=== PATIENT | female | born 1965 | race Caucasian/White ===

== ENCOUNTER 2018-06-18 08:12 | Day surgery (SDC) | payer BC ==
[2018-06-18] MEDS ORDERED: LIDOCAINE 2% MDV (20MG/ML) 20ML VIAL IV ONE (08:13)
[2018-06-18] MEDS ORDERED: KETOROLAC 30 MG/ML VIAL IVP ONE (08:13)
[2018-06-18] MEDS ORDERED: PROPOFOL 10 MG/ML VIAL IV ONE (08:13)
[2018-06-18] MEDS ORDERED: FENTANYL PF 100MCG/2ML VIAL IV ONE (08:13)
--- NOTE | 2018-06-21 08:30 | Operative Note ---
DATE OF SURGERY: 06/18/2018 SURGEON: Juanita Ann MD OPERATION: COLONOSCOPY. INDICATIONS: This is a 63-year-old female with history of colon polyps who presented for surveillance colonoscopy. POSTOPERATIVE DIAGNOSES: 1. Left-sided colonic diverticulosis. 2. Grade 1 internal hemorrhoids. ANESTHESIA: Sedation is per Anesthesia. Pulse oximetry was monitored throughout the procedure to maintain O2 saturation of 90% or greater. Supplemental oxygen was administered via nasal cannula. Cardiac and vital signs were monitored throughout the duration of the procedure, and they were stable. The procedure of colonoscopy and risks and alternatives of the procedure, including the risk of bleeding and perforation, among others, were explained to the patient who voiced understanding and agreed to have the procedure done. Physical examination was performed, and the patient was found stable for sedation. PROCEDURE: The patient was placed in the left lateral position. Sedation was initiated. A digital rectal exam was performed and showed some mild external hemorrhoids with no palpable rectal masses. An Olympus PCF-180AL colonoscope was then inserted into the rectum under direct visualization. It was advanced to the cecum without difficulty. The ileocecal valve and appendiceal orifice were identified and photographed. The colonic mucosa was carefully examined upon introduction of the colonoscope. There were scattered diverticula noted in the sigmoid and descending colon. There were no other lesions noted. The ileocecal valve was intubated and terminal ileal mucosa was inspected for about 10 cm and it appeared normal. The colonoscope was then withdrawn while carefully examining the colonic mucosal surfaces. No other lesions were noted. In the rectum, retroflexion was performed and grade 1 internal hemorrhoids were noted. The colonoscope was then withdrawn and the procedure was terminated. The patient tolerated the procedure well without any immediate complications. The patient remained with stable vital signs and was transferred to the recovery room. RECOMMENDATIONS: 1. The patient should be on a high-fiber diet. 2. The patient is to have a repeat colonoscopy for surveillance in 5 years. Thank you for allowing me to participate in the care of your patient. CC: DO HETAL Morin
== END 2018-06-18 10:05 | disposition home or self-care (01) ==
LOC: HOP 08:12
PROVIDERS: ATTEND Internal Medicine Gastroenterology
DX: Z12.11 Encounter for screening for malignant neoplasm of colon (principal); Z86.010 Personal history of colon polyps; K57.30 Diverticulosis of large intestine without perforation or abscess without bleeding; E03.9 Hypothyroidism, unspecified
CPT/HCPCS: 00812; G0105; J1885

== ENCOUNTER 2019-03-09 18:31 | Emergency (ER) | payer BC ==
[2019-03-09] MEDS ORDERED: KETOROLAC 30 MG/ML VIAL IVP ONE (18:39)
[2019-03-09] MEDS ORDERED: ASPIRIN 81 MG CHEWABLE TABLET PO ONE (18:40)
--- NOTE | 2019-03-09 18:44 | Emergency Department Record ---
History of Present Illness - General Chief Complaint: Chest Pain Stated Complaint: CHEST PAIN Time Seen by Provider: 03/09/19 18:32 Source: Patient Mode of Arrival: Ambulatory Limitations: No limitations - History of Present Illness Initial Comments: 54 yo female presents to ED for evaluation of chest pain symptoms for the past 3 days, reports "pain all over". Patient reports any movement of the chest causes pain, worse when supine. 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 Patient denies fevers, chills, or cough symptoms, denies recent illness. Patient denies previous heart or lung problems, and denies history of DVT or calf pain/swelling symptoms. MD Complaint: Chest pain Onset/Timin -: Days(s) Pain Location: Substernal Severity: Moderate Quality: Aching Consistency: Constant Improves With: Other (sitting upright) Worsens With: Supine Treatments Prior to Arrival: None - Related Data Allergies Allergy/AdvReac Type Severity Reaction Status Date / Time No Known Drug Allergies Allergy Unverified 06/28/18 14:07 Review of Systems Constitutional: Denies: Chills, Fever, Malaise, Night sweats Eyes: Denies: Eye discharge, Eye pain ENT: Denies: Congestion, Ear pain, Epistaxis Respiratory: Denies: Cough, Dyspnea Cardiovascular: Reports: Chest pain. Denies: Dyspnea on exertion Endocrine: Denies: Fatigue, Heat or cold intolerance Gastrointestinal: Denies: Abdominal pain, Nausea, Vomiting Genitourinary: Denies: Incontinence, Retention Musculoskeletal: Denies: Arthralgia, Back pain Skin: Denies: Bruising, Change in color Neurological: Denies: Abnormal gait, Confusion, Headache, Tingling, Tremors Psychiatric: Denies: Anxiety Hematological/Lymphatic: Denies: Anemia, Blood Clots Past Medical History - SOCIAL HISTORY Smoking Status: Light tobacco smoker (<10/day) - RESPIRATORY Hx Respiratory Disorders: No - CARDIOVASCULAR Hx Cardio Disorders: No - NEURO Hx Neuro Disorders: Yes Hx of Migraines: Yes (lisinopril for migraines) - GI Hx GI Disorders: Yes Hx of Polyps: Yes - Hx Genitourinary Disorders: No - ENDOCRINE Hx Endocrine Disorders: No - MUSCULOSKELETAL Hx Musculoskeletal Disorders: No - PSYCH Hx Psych Problems: Yes Hx Depression: Yes - HEMATOLOGY/ONCOLOGY Hx Hematology/Oncology Disorders: No Family Medical History Hx HTN: Father Hx Kidney Disease: Mother Physical Exam - General General Appearance: Alert, Oriented x3, Cooperative, Moderate distress, Anxious Limitations: No limitations - Head Head exam: Atraumatic, Normocephalic, Normal inspection Head exam detail: negative: Abrasion, Contusion, Helm's sign, General tenderness, Hematoma, Laceration - Eye Eye exam: Normal appearance. negative: Conjunctival injection, Periorbital swelling, Periorbital tenderness, Scleral icterus - ENT Ear exam: negative: Auricular hematoma, Auricular trauma Nasal Exam: negative: Active bleeding, Discharge, Dried blood, Foreign body Mouth exam: negative: Drooling, Laceration, Muffled voice, Tongue elevation - Neck Neck exam: Normal inspection. negative: Meningismus, Tenderness - Respiratory Respiratory exam: Normal lung sounds bilaterally. negative: Respiratory distress, Rhonchi, Stridor, Wheezes - Cardiovascular Cardiovascular Exam: Normal rhythm, Normal heart sounds, Tachycardia - GI/Abdominal GI/Abdominal exam: Soft. negative: Distended, Rebound, Rigid, Tenderness - Rectal Rectal exam: Deferred - exam: Deferred - Extremities Extremities exam: Normal inspection. negative: Pedal edema, Tenderness - Back Back exam: Denies: CVA tenderness (R), CVA tenderness (L) - Neurological Neurological exam: Alert, Normal gait, Oriented X3 - Psychiatric Psychiatric exam: Normal affect, Normal mood - Skin Skin exam: Normal color. negative: Abrasion Type of lesion: negative: abrasion Course - Reevaluation(s) Reevaluation #1: 03/09/19 18:45 EKG: Sinus tachycardia IVCD, normal intervals ST depression I, II, V3-V5 Patient's EKG is concerning for myocardial ischemia, will administer ASA/Nitro trial and monitor closely pending Troponin results. Reevaluation #2: 03/09/19 19:31 Laboratory studies were reviewed and appear grossly unremarkable for an acute process. Troponin is normal at this time. Patient declined Nitro that was ordered for concerning EKG. Patient did accept ASA and Toradol. Patient is going for CTA of the chest at this time. Reevaluation #3: 03/09/19 20:41 CTA Chest: Non-displaced rib fractures of the left 2nd, 4th-7th No PE Patient was updated on all results, will initiate transfer to [facility] for Trauma and Cardiac evaluation. Medical Decision Making - Lab Data Result diagrams: 03/09/19 18:40 03/09/19 18:40 Disposition Disposition: Transfer Clinical Impression: Acute electrocardiogram changes Chest pain Qualifiers: Chest pain type: unspecified Qualified Code(s): R07.9 - Chest pain, unspecified Multiple rib fractures Qualifiers: Encounter type: subsequent encounter Fracture type: closed Laterality: left Fracture healing: with routine healing Qualified Code(s): S22.42XD - Multiple fractures of ribs, left side, subsequent encounter for fracture with routine healing Disposition: Acute Care Hospital Transfer Transfer To: [facility] Reason For Transfer: Cardiology consultation Accepting Physician: Oniel Bonds Time Discussed w/Accepting Physician: 21:11 Condition: (2) Stable Forms: Patient Portal Access Time of Disposition: 20:43 Quality - Quality Measures Quality Measures: N/A - Blood Pressure Screening Does Patient Have Any of the Following: No Blood Pressure Classification: Pre-Hypertensive BP Reading Systolic Measurement: 129 Diastolic Measurement: 86 Screening for High Blood Pressure: < Pre-Hypertensive BP, F/U Documented > [[id number]] Pre-Hypertensive Follow-up Interventions: Referral to alternative/primary care provider.
[2019-03-09] MEDS ORDERED: NITROGLYCERIN 0.4MG SL TABLET #25 BTL SL PRN (18:46)
[2019-03-09 19:04] LABS: ABSOLUTE NEUTROPHIL COUNT 2.71; BASO % 0.5 % (0-6); EOS % 6.7 % (0-6); GRAN % 48.2 % (47-80); HEMATOCRIT 43.8 % (35.0-47.0); HEMOGLOBIN 14.5 gm/dl (11.6-16.0); LYMPH % 36.1 % (16-45); MEAN CELL VOLUME 94.8 fl (81-97); MEAN CORPUSCULAR HEMOGLOBIN 31.4 pg (27-33); MEAN CORPUSCULAR HGB CONC 33.1 g/dl (32-36); MEAN PLATELET VOLUME 9.3 fl (7.4-10.4); MONO % 8.5 % (0-9); PLATELET COUNT 325 K/uL (130-400); RED BLOOD COUNT 4.62 M/uL (3.80-5.40); RED CELL DISTRIBUTION WIDTH 13.2 % (11.5-14.5); WHITE BLOOD COUNT W/O DIFF 5.6 K/uL (4.2-12.2)
[2019-03-09 19:19] LABS: BLOOD UREA NITROGEN 16 mg/dL (6-20); CREATININE 0.6 mg/dL (0.5-0.9); EST GLOMERULAR FILTRATION RATE > 60 mL/min; TOTAL PROTEIN 8.1 g/dL (6.6-8.7)
[2019-03-09 19:21] LABS: GLUCOSE,RANDOM 131 mg/dL (74-109)
[2019-03-09 19:24] LABS: ALB/GLOB RATIO 1.9 (1.1-1.8); ALBUMIN 5.3 g/dL (4.0-5.0); ALKALINE PHOSPHATASE 84 U/L (35-104); ALT/SGPT 21 U/L (<33); AST/SGOT 20 U/L (10.0-35.0)
[2019-03-09] MEDS ORDERED: MORPHINE SULFATE 5 MG/ML VIAL IVP ONE (21:14)
--- NOTE | 2019-03-09 22:21 | CT ANGIOGRAM REPORT ---
EXAMINATION: CT Angiography of the Thorax EXAM DATE: 03/09/2019 8:03 PM TECHNIQUE: Standard protocol CT angiogram images were obtained through the chest following the admini stration of intravenous contrast. Coronal and sagittal MIP 3-D reformations were performed. IV Contrast: The amount and type of contrast are recorded in the medical record. INDICATION: chest pain, anterior left rib pain. Fell a few days ago COMPARISON: None ENCOUNTER: Not applicable FINDINGS: Pulmonary Artery: No pulmonary embolism is present. Aorta: No thoracic aortic aneurysm or dissection is present. Right Heart Strain: None. Heart : The heart is nonenlarged and there is no pericardial effusion. No enlarged lymph nodes in th e thorax. Tammy and Mediastinum: No lymphadenopathy. Lung Parenchyma: Normal. Central Airways: Normal. Pleural Effusion: None. Upper Abdomen: Unilocular cyst in the lateral segment of the left lobe of liver measures 1 cm. Unilo cular cyst upper pole left kidney measures 1.1 cm. Musculoskeletal and Chest Wall: Acute nondisplaced fracture of the anterior left second rib on axial image 2, 48 as well as the anterior left third rib on axial image 2, 71. Acute nondisplaced fracture of the lateral left fourth rib on axial image 2, 76, lateral left fifth rib on image 87, lateral left sixth rib on image 96, lateral left seventh rib on image 125 Vertebral body stature is preserved. IMPRESSION: 1. Acute nondisplaced fractures of the anterior left second and third ribs. Acute nondisplaced fractu res of the lateral left fourth through seventh ribs. 2. No PE or thoracic aortic dissection. The lungs are clear. Dictated by: Francisco Song MD on 03/09/2019 8:14 PM. .
== END 2019-03-09 21:35 | disposition short-term general hospital (02) ==
LOC: ER 18:31
DX: R07.2 Precordial pain (principal); R94.31 Abnormal electrocardiogram [ECG] [EKG]; S22.42XD Multiple fractures of ribs, left side, subsequent encounter for fracture with routine healing; W19.XXXD Unspecified fall, subsequent encounter; F17.210 Nicotine dependence, cigarettes, uncomplicated
CPT/HCPCS: 71275; 80053; 84484; 85025; 93005; 93010; 96374; 96375; 99285; J1885